=== PATIENT | female | born 1990 | race Caucasian/White ===

== ENCOUNTER 2020-05-29 00:06 | Inpatient (IN) | payer MEDICAID, OTHER, SELFPAY ==
[2020-05-29] MEDS ORDERED: Ondansetron 4 MG/2 ML SDV IVPUSH PRN ×2 (13:56→15:12)
[2020-05-29] MEDS ORDERED: Nalbuphine 10 MG/ML Syringe IVPUSH PRN (13:56)
[2020-05-29] MEDS ORDERED: Sodium Chloride 0.9% 10 ML Syringe FLUSH PRN (13:56)
[2020-05-29] MEDS ORDERED: Ampicillin 2 GM in Sodium Chloride 0.9% 100 ML IV ONE (14:00)
[2020-05-29] MEDS ORDERED: Oxytocin/Lactated Ringers 10 UNIT/1,000 ML BAG IV SCH ×2 (14:00)
[2020-05-29] MEDS: Lactated Ringers 1,000 ML IV SCH ×4 (14:51→21:28)
[2020-05-29] MEDS ORDERED: ePHEDrine 50 MG/ML SDV IVPUSH PRN (15:12)
[2020-05-29] MEDS ORDERED: Bupivacaine/fentaNYL/NS 100 ML Bag EPIDUR SCH (15:15)
--- NOTE | 2020-05-29 15:15 | PCM.PREANE ---
Preanesthetic Assessment - Procedure Proposed Procedure: Epidural - Anesthesia/Transfusion/Family Hx Anesthesia History: No Prior Anesthesia Family History of Anesthesia Reaction: No Transfusion History: No Prior Transfusion(s) Intubation History: Unknown - Review of Systems General: No Symptoms Pulmonary: No Symptoms Cardiovascular: No Symptoms Gastrointestinal: No Symptoms (GERD) Neurological: No Symptoms, Headache Other: Reports: None, Easy Bruising - Physical Assessment NPO Status Date: 05/29/20 NPO Status Time: 16:15 Vital Signs: HR:109 Sat:99% Temp:98.6 B/P:136/80 Resp:20 Height: 1.63 m Weight: 88.178 kg ASA Class: 2 Mental Status: Alert & Oriented x3 Airway Class: Mallampati = 2 Dentition: Reports: Normal Dentition (tongue piercinig/ asked to remove all piercings.), Caries Thyro-Mental Finger Breadths: 3 Mouth Opening Finger Breadths: 3 ROM/Head Extension: Full Lungs: Clear to Auscultation, Normal Respiratory Effort Cardiovascular: Regular Rate, Regular Rhythm, No Murmurs - Lab Values: Laboratory Last Values WBC 10.68 K/mm3 (3.98-10.04) H 05/29/20 14:10 RBC 4.50 M/mm3 (3.98-5.22) 05/29/20 14:10 Hgb 12.5 gm/dl (11.2-15.7) 05/29/20 14:10 Hct 38.0 % (34.1-44.9) 05/29/20 14:10 MCV 84.4 fl (79.4-94.8) 05/29/20 14:10 MCH 27.8 pg (25.6-32.2) 05/29/20 14:10 MCHC 32.9 g/dl (32.2-35.5) 05/29/20 14:10 RDW Std Deviation 41.1 fL (36.4-46.3) 05/29/20 14:10 Plt Count 270 K/mm3 (182-369) 05/29/20 14:10 MPV 12.5 fl (9.4-12.3) H 05/29/20 14:10 Neut % (Auto) 77.7 % (34.0-71.1) H 05/29/20 14:10 Lymph % (Auto) 13.7 % (19.3-51.7) L 05/29/20 14:10 [place] % (Auto) 7.2 % (4.7-12.5) 05/29/20 14:10 Eos % (Auto) 0.8 (0.7-5.8) 05/29/20 14:10 Baso % (Auto) 0.2 % (0.1-1.2) 05/29/20 14:10 Neut # (Auto) 8.30 K/mm3 (1.56-6.13) H 05/29/20 14:10 Lymph # (Auto) 1.46 K/mm3 (1.18-3.74) 05/29/20 14:10 [place] # (Auto) 0.77 K/mm3 (0.24-0.36) H 05/29/20 14:10 Eos # (Auto) 0.09 K/mm3 (0.04-0.36) 05/29/20 14:10 Baso # (Auto) 0.02 K/mm3 (0.01-0.08) 05/29/20 14:10 Above labs reviewed and noted and within acceptable ranges to proceed with epidural if desired. 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: - CURRENT (IN HOUSE) MEDS Current Meds: Current Medications Ampicillin Sodium 1 gm/ Sodium (Chloride) 100 mls @ 200 mls/hr IV Q4H LUCAS Oxytocin/Lactated Ringer's (Pitocin In Lr 10 Units/1,000 Ml) 10 unit in 1,000 mls @ 12 mls/hr IV TITRATE LUCAS; Protocol Last Admin: 05/29/20 14:54 Dose: 2 munits/min, 12 mls/hr Documented by: Oxytocin/Lactated Ringer's (Pitocin In Lr 10 Units/1,000 Ml) 10 unit in 1,000 mls @ 500 mls/hr IV .CONTINUOUS LUCAS Lactated Ringer's (Ringers, Lactated) 1,000 mls @ 100 mls/hr IV ASDIRECTED LUCAS Last Admin: 05/29/20 14:51 Dose: 100 mls/hr Documented by: Nalbuphine HCl (Nubain) 10 mg IVPUSH Q2H PRN PRN Reason: Pain Ondansetron HCl (Zofran) 4 mg IVPUSH Q4H PRN PRN Reason: Nausea/Vomiting Sodium Chloride (Saline Flush) 10 ml FLUSH ASDIRECTED PRN PRN Reason: Keep Vein Open Discontinued Medications Ampicillin Sodium 2 gm/ Sodium (Chloride) 100 mls @ 200 mls/hr IV ONETIME ONE Stop: 05/29/20 14:29 Last Admin: 05/29/20 14:56 Dose: 200 mls/hr Documented by:
[2020-05-29] MEDS: Ampicillin 1 GM in Sodium Chloride 0.9% 100 ML IV SCH ×2 (18:46→22:53)
[2020-05-29] MEDS ORDERED: fentaNYL 100 MCG/2 ML SDV ONE (20:19)
[2020-05-29] MEDS ORDERED: fentaNYL 100 MCG/2 ML SDV EPIDUR PRN (20:19)
[2020-05-30] MEDS ORDERED: Bupivacaine 0.25% 10 ML SDV ONE
--- NOTE | 2020-05-30 00:22 | PCM.LDHP ---
L&D History of Present Illness - General Date of Service: 05/29/20 Admit Problem/Dx: Patient Status Order with Admit Dx/Problem 05/29/20 13:56 Patient Status [ADT] Routine Admission Diagnosis/Problem Admission Diagnosis/Problem - History of Present Illness Introduction:: 30 year old at 39w1 here for induction after two elevated blood pressures in clinic. PNC with myself without complications. No significant symptoms today. Mild headache a few days ago. Good movement. 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: Social & Family History - Family History Family Medical History: Noncontributory - Tobacco Use Smoking Status *Q: Never Smoker Second Hand Smoke Exposure: No - Recreational Drug Use Recreational Drug Use: No H&P Review of Systems - Review of Systems: Review Of Systems: See Below General: Reports: No Symptoms HEENT: Reports: No Symptoms Pulmonary: Reports: No Symptoms Cardiovascular: Reports: No Symptoms Gastrointestinal: Reports: No Symptoms Genitourinary: Reports: No Symptoms Musculoskeletal: Reports: No Symptoms Skin: Reports: No Symptoms Psychiatric: Reports: No Symptoms Neurological: Reports: No Symptoms Hematologic/Lymphatic: Reports: No Symptoms Immunologic: Reports: No Symptoms L&D Exam - Exam Exam: See Below - Vital Signs Vital Signs: Last Vital Signs Temp 36.8 C 05/29/20 13:56 Pulse 109 H 05/29/20 13:56 Resp 14 05/29/20 13:56 BP 136/80 05/29/20 13:56 Pulse Ox 96 05/29/20 13:56 Weight: 88.178 kg - OB Specific Contraction Intensity: Moderate to Strong Movement: Active Heart Tones: Present Heart Rate (FHR) Variability: Moderate (6-25 bmp) - Kelley Score Kelley Score Cervix Position: Anterior Kelley Score Effacement: >80% Kelley Score Dilation: 3-4 cm Kelley Score 's Station: -3 - Exam General: Alert, Oriented HEENT: PERRLA, Conjunctiva Clear, EACs Clear, EOMI, Hearing Intact, Mucosa Moist & [place], Nares Patent, Normal Nasal Septum, Posterior Pharynx Clear, TMs Clear Neck: Supple, Trachea Midline Lungs: Clear to Auscultation, Normal Respiratory Effort Cardiovascular: Regular Rate, Regular Rhythm GI/Abdominal Exam: Normal Bowel Sounds, Soft, Non-Tender Rectal Exam: Normal Exam Genitourinary: Normal external exam Back Exam: Normal Inspection Extremities: Normal Inspection, Normal Range of Motion, Non-Tender, No Pedal Edema, Normal Capillary Refill Skin: Warm, Dry, Intact Neurological: Cranial Nerves Intact Psychiatric: Alert, Normal Affect, Normal Mood - Patient Data Lab Results Last 24 hrs: Laboratory Results - last 24 hr 05/29/20 05/29/20 05/29/20 Range/Units 14:10 14:10 14:10 WBC 10.68 H (3.98-10.04) K/mm3 RBC 4.50 (3.98-5.22) M/mm3 Hgb 12.5 (11.2-15.7) gm/dl Hct 38.0 (34.1-44.9) % MCV 84.4 (79.4-94.8) fl MCH 27.8 (25.6-32.2) pg MCHC 32.9 (32.2-35.5) g/dl RDW Std Deviation 41.1 (36.4-46.3) fL Plt Count 270 (182-369) K/mm3 MPV 12.5 H (9.4-12.3) fl Neut % (Auto) 77.7 H (34.0-71.1) % Lymph % (Auto) 13.7 L (19.3-51.7) % [place] % (Auto) 7.2 (4.7-12.5) % Eos % (Auto) 0.8 (0.7-5.8) Baso % (Auto) 0.2 (0.1-1.2) % Neut # (Auto) 8.30 H (1.56-6.13) K/mm3 Lymph # (Auto) 1.46 (1.18-3.74) K/mm3 [place] # (Auto) 0.77 H (0.24-0.36) K/mm3 Eos # (Auto) 0.09 (0.04-0.36) K/mm3 Baso # (Auto) 0.02 (0.01-0.08) K/mm3 RPR Non-reactive (NONREACTIVE) HIV-1 Ab Rapid Screen (NEGATIVE) SARS-CoV-2 RNA (RAOUL) (NEGATIVE) Blood Type AB POSITIVE Gel Antibody Screen Negative 05/29/20 05/29/20 Range/Units 14:10 14:50 WBC (3.98-10.04) K/mm3 RBC (3.98-5.22) M/mm3 Hgb (11.2-15.7) gm/dl Hct (34.1-44.9) % MCV (79.4-94.8) fl MCH (25.6-32.2) pg MCHC (32.2-35.5) g/dl RDW Std Deviation (36.4-46.3) fL Plt Count (182-369) K/mm3 MPV (9.4-12.3) fl Neut % (Auto) (34.0-71.1) % Lymph % (Auto) (19.3-51.7) % [place] % (Auto) (4.7-12.5) % Eos % (Auto) (0.7-5.8) Baso % (Auto) (0.1-1.2) % Neut # (Auto) (1.56-6.13) K/mm3 Lymph # (Auto) (1.18-3.74) K/mm3 [place] # (Auto) (0.24-0.36) K/mm3 Eos # (Auto) (0.04-0.36) K/mm3 Baso # (Auto) (0.01-0.08) K/mm3 RPR (NONREACTIVE) HIV-1 Ab Rapid Screen Negative (NEGATIVE) SARS-CoV-2 RNA (RAOUL) Negative (NEGATIVE) Blood Type Gel Antibody Screen Result Diagrams: 05/29/20 14:10 Problem List Initiated/Reviewed/Updated: Yes Orders Last 24hrs: Active Orders 24 hr Category Date Time Status Patient Status [ADT] Routine ADT 05/29/20 13:56 Active Activity as Tolerated [RC] PFP Care 05/29/20 13:56 Active Communication Order [RC] ASDIRECTED Care 05/29/20 13:56 Active Insert Urinary Catheter [OM.PC] Q24H Care 05/29/20 22:15 Ordered Notify Provider [RC] ASDIRECTED Care 05/29/20 15:12 Active Notify Provider [RC] PFP Care 05/29/20 13:56 Active Notify Provider [RC] PRN Care 05/29/20 13:56 Active Peripheral IV Care [RC] Q2HR Care 05/29/20 13:56 Active Urinary Catheter Assessment [RC] ASDIRECTED Care 05/29/20 22:08 Active Regular Diet [DIET] Diet 05/29/20 Dinner Active BLOOD BANK HOLD SPECIMEN [BBK] Stat Lab 05/29/20 13:56 Ordered HEPATITIS B SURFACE AG [CHEM] Routine Lab 05/29/20 14:10 Received RUBELLA ANTIBODY IGG [CHEM] Stat Lab 05/29/20 14:10 Received Ampicillin 1 gm Med 05/29/20 19:00 Active Sodium Chloride 0.9% [Normal Saline] 100 ml IV Q4H Bupivacaine/fentaNYL/NS [fentaNYL/Bupivacaine/NS 2 MCG- Med 05/29/20 15:15 Active 0.125% 100 ML] 100 ml EPIDUR ASDIRECTED Lactated Ringers [Ringers, Lactated] 1,000 ml Med 05/29/20 14:00 Active IV ASDIRECTED Nalbuphine [Nubain] Med 05/29/20 13:56 Active 10 mg IVPUSH Q2H PRN Ondansetron [Zofran] Med 05/29/20 15:12 Active 4 mg IVPUSH ONETIME PRN Ondansetron [Zofran] Med 05/29/20 13:56 Active 4 mg IVPUSH Q4H PRN Oxytocin/Lactated Ringers [Pitocin in LR 10 Units/1,000 Med 05/29/20 14:00 Active ML] 10 unit in 1,000 ml IV .CONTINUOUS Oxytocin/Lactated Ringers [Pitocin in LR 10 Units/1,000 Med 05/29/20 14:00 Active ML] 10 unit in 1,000 ml IV TITRATE Sodium Chloride 0.9% [Saline Flush] Med 05/29/20 13:56 Active 10 ml FLUSH ASDIRECTED PRN ePHEDrine [ePHEDrine sulfate] Med 05/29/20 15:12 Active 5 mg IVPUSH ASDIRECTED PRN fentaNYL [Sublimaze] Med 05/29/20 20:19 Active 100 mcg EPIDUR Q3H PRN Electronic Heart Tones Ext w TOCO [WOMSER] Oth 10/06/20 13:56 Ordered Routine Electronic Heart Tones Internal [WOMSER] Per Unit Oth 05/29/20 13:56 Ordered Routine Peripheral IV Insertion Adult [OM.PC] Routine Oth 05/29/20 13:56 Ordered Resuscitation Status Routine Resus Stat 05/29/20 13:56 Ordered Medication Orders Ephedrine Sulfate (Ephedrine Sulfate) 5 mg IVPUSH ASDIRECTED PRN PRN Reason: Hypotension Fentanyl (Sublimaze) 100 mcg EPIDUR Q3H PRN PRN Reason: Pain Last Admin: 05/29/20 20:28 Dose: 100 mcg Documented by: TREY Fentanyl/Bupivacaine HCl (Fentanyl/Bupivacaine/Ns 2 Mcg-0.125% 100 Ml) 100 ml EPIDUR ASDIRECTED LUCAS Last Admin: 05/29/20 20:22 Dose: 100 ml Documented by: TREY Ampicillin Sodium 1 gm/ Sodium (Chloride) 100 mls @ 200 mls/hr IV Q4H LUCAS Last Admin: 05/29/20 22:53 Dose: 200 mls/hr Documented by: Infusion: 05/29/20 19:16 Dose: 200 mls/hr Documented by: Admin: 05/29/20 18:46 Dose: 200 mls/hr Documented by: APRYL Oxytocin/Lactated Ringer's (Pitocin In Lr 10 Units/1,000 Ml) 10 unit in 1,000 mls @ 12 mls/hr IV TITRATE LUCAS; Protocol Last Titration: 05/29/20 23:56 Dose: 12 munits/min, 72 mls/hr Documented by: Titration: 05/29/20 18:36 Dose: 10 munits/min, 60 mls/hr Documented by: Titration: 05/29/20 16:58 Dose: 8 munits/min, 48 mls/hr Documented by: Titration: 05/29/20 16:18 Dose: 6 munits/min, 36 mls/hr Documented by: Titration: 05/29/20 15:46 Dose: 4 munits/min, 24 mls/hr Documented by: Admin: 05/29/20 14:54 Dose: 2 munits/min, 12 mls/hr Documented by: APRYL Oxytocin/Lactated Ringer's (Pitocin In Lr 10 Units/1,000 Ml) 10 unit in 1,000 mls @ 500 mls/hr IV .CONTINUOUS [facility] Lactated Ringer's (Ringers, Lactated) 1,000 mls @ 100 mls/hr IV ASDIRECTED [facility] Last Admin: 05/29/20 21:28 Dose: 100 mls/hr Documented by: Infusion: 05/29/20 21:28 Dose: 999 mls/hr Documented by: Admin: 05/29/20 20:27 Dose: 999 mls/hr Documented by: Infusion: 05/29/20 20:27 Dose: 100 mls/hr Documented by: Admin: 05/29/20 18:34 Dose: 100 mls/hr Documented by: Infusion: 05/29/20 18:34 Dose: 100 mls/hr Documented by: Admin: 05/29/20 14:51 Dose: 100 mls/hr Documented by: APRYL Nalbuphine HCl (Nubain) 10 mg IVPUSH Q2H PRN PRN Reason: Pain Ondansetron HCl (Zofran) 4 mg IVPUSH Q4H PRN PRN Reason: Nausea/Vomiting Ondansetron HCl (Zofran) 4 mg IVPUSH ONETIME PRN PRN Reason: Nausea/Vomiting Sodium Chloride (Saline Flush) 10 ml FLUSH ASDIRECTED PRN PRN Reason: Keep Vein Open Assessment/Plan Comment:: 30 year old here for induction. AROM clear fluid. Ampicillin. Pitocin. Anticipate .
--- NOTE | 2020-05-30 00:25 | PCM.SN.2 ---
- Free Text/Narrative Note: Stage I - Patient presented for induction of labor. Ampicillin and pitocin. AROM clear fluid. Progressed to complete with reassuring FHT. Epidural for anesthesia. Stage II - of viable male, weight 7#5oz, 8/9 APGARS at 0006. Head delivered in controlled manner over intact perineum. Nuchal arm. Body and shoulders followed without difficulty. Pitocin initiated. To maternal abdomen. Positive cry. See nursing record for immediate care. Cord clamped and cut. Cord blood collected. Stage III - of intact placenta. Discarded. 3vc. Small subcentimeter periurethral laceration not requiring repair. EBL 200.
[2020-05-30] MEDS ORDERED: Witch Hazel Medicated Pads 40/Jar TOP PRN (01:52)
[2020-05-30] MEDS ORDERED: Docusate Sodium 100 MG Cap PO PRN (01:52)
[2020-05-30] MEDS ORDERED: Ibuprofen 600 MG Tab PO PRN (01:52)
[2020-05-30] MEDS ORDERED: Benzocaine/Menthol 20%-0.5% Spray 56 GM Canister TOP PRN (01:52)
--- NOTE | 2020-05-30 08:01 | PCM48HPAN ---
Post Anesthesia Note - EVALUATION WITHIN 48HRS OF ANESTHETIC Vital Signs in Normal Range: Yes Patient Participated in Evaluation: Yes Respiratory Function Stable: Yes Airway Patent: Yes Cardiovascular Function Stable: Yes Hydration Status Stable: Yes Pain Control Satisfactory: Yes Nausea and Vomiting Control Satisfactory: Yes Mental Status Recovered: Yes Vital Signs: Last Vital Signs Temp 99.1 F 05/30/20 03:00 Pulse 93 05/30/20 03:00 Resp 14 05/30/20 03:00 BP 116/88 05/30/20 03:00 Pulse Ox 94 L 05/30/20 03:00
--- NOTE | 2020-05-31 10:00 | PCM.DCSUM1 ---
Discharge Summary - Hospital Course Brief History: Admitted for IOL. Uncomplicated and course. BPs no more than mild range throughout stay. Diagnosis: Stroke: No - Discharge Data Discharge Date: 05/31/20 Discharge Disposition: Home, Self-Care 01 Condition: Good - Referral to Home Health Primary Care Physician: PCP None - Patient Instructions Diet: Usual Diet as Tolerated Activity: No Strenuous Activities Driving: May Drive Today Showering/Bathing: May Shower Notify Provider of: Fever, Increased Pain, Swelling and Redness, Drainage, Nausea and/or Vomiting Other/Special Instructions: call with headache, generally any change in symptoms or new abdominal pain - Discharge Plan *PRESCRIPTION DRUG MONITORING PROGRAM REVIEWED*: No *COPY OF PRESCRIPTION DRUG MONITORING REPORT IN PATIENT CARLYN: No Patient Handouts: Breast Pumping Tips, and Self-Care, Care After Vaginal Delivery Referrals: Gretel Power MD [Physician] - - Discharge Summary/Plan Comment DC Time >30 min.: No - Patient Data Vitals - Most Recent: Last Vital Signs Temp 36.8 C 05/31/20 07:49 Pulse 80 05/31/20 07:49 Resp 14 05/31/20 07:49 BP 115/80 05/31/20 07:49 Pulse Ox 93 L 05/31/20 07:49 Weight - Most Recent: 88.178 kg Lab Results - Last 24 hrs: Laboratory Results - last 24 hr 05/29/20 Range/Units 14:10 Hep Bs Antigen Nonreactive (NONREACTIVE) Rubella IgG Antibody Reactive (pos) (REACTIVE) Med Orders - Current: Current Medications Benzocaine/Menthol (Dermoplast Pain Relief [place]) 0 gm TOP ASDIRECTED PRN PRN Reason: Perineal Comfort Measure Last Admin: 05/30/20 02:15 Dose: 1 can Documented by: Docusate Sodium (Colace) 100 mg PO BID PRN PRN Reason: Constipation Last Admin: 05/30/20 02:14 Dose: 100 mg Documented by: Ibuprofen (Motrin) 600 mg PO Q6H PRN PRN Reason: Mild pain or fever Last Admin: 05/30/20 02:14 Dose: 600 mg Documented by: Reji Deleon (Gissel) 1 pad TOP ASDIRECTED PRN PRN Reason: Pain Last Admin: 05/30/20 02:15 Dose: 1 container Documented by: Discontinued Medications Bupivacaine HCl (Sensorcaine-Mpf 0.25%) 10 ml .ROUTE .STK-MED ONE Stop: 05/30/20 00:01 Ephedrine Sulfate (Ephedrine Sulfate) 5 mg IVPUSH ASDIRECTED PRN PRN Reason: Hypotension Fentanyl (Sublimaze) 100 mcg EPIDUR Q3H PRN PRN Reason: Pain Last Admin: 05/29/20 20:28 Dose: 100 mcg Documented by: Fentanyl (Sublimaze) Confirm Administered Dose 100 mcg .ROUTE .STK-MED ONE Stop: 05/29/20 20:20 Last Admin: 05/29/20 22:06 Dose: Not Given Documented by: Fentanyl/Bupivacaine HCl (Fentanyl/Bupivacaine/Ns 2 Mcg-0.125% 100 Ml) 100 ml EPIDUR ASDIRECTED LUCAS Last Admin: 05/29/20 20:22 Dose: 100 ml Documented by: Ampicillin Sodium 2 gm/ Sodium (Chloride) 100 mls @ 200 mls/hr IV ONETIME ONE Stop: 05/29/20 14:29 Last Admin: 05/29/20 14:56 Dose: 200 mls/hr Documented by: Ampicillin Sodium 1 gm/ Sodium (Chloride) 100 mls @ 200 mls/hr IV Q4H LUCAS Last Admin: 05/29/20 22:53 Dose: 200 mls/hr Documented by: Oxytocin/Lactated Ringer's (Pitocin In Lr 10 Units/1,000 Ml) 10 unit in 1,000 mls @ 12 mls/hr IV TITRATE LUCAS; Protocol Last Titration: 05/30/20 00:07 Dose: 166.5 munits/min, 999 mls/hr Documented by: Oxytocin/Lactated Ringer's (Pitocin In Lr 10 Units/1,000 Ml) 10 unit in 1,000 mls @ 500 mls/hr IV .CONTINUOUS LUCAS Last Admin: 05/30/20 00:40 Dose: 500 mls/hr Documented by: Lactated Ringer's (Ringers, Lactated) 1,000 mls @ 100 mls/hr IV ASDIRECTED LUCAS Last Admin: 05/29/20 21:28 Dose: 100 mls/hr Documented by: Miscellaneous Medication (Phenylephrine 1 Mg/10 Ml-Ns) 0 mg IVPUSH ONETIME ONE Stop: 05/29/20 15:13 Last Admin: 05/30/20 04:40 Dose: Not Given Documented by: Nalbuphine HCl (Nubain) 10 mg IVPUSH Q2H PRN PRN Reason: Pain Ondansetron HCl (Zofran) 4 mg IVPUSH Q4H PRN PRN Reason: Nausea/Vomiting Ondansetron HCl (Zofran) 4 mg IVPUSH ONETIME PRN PRN Reason: Nausea/Vomiting Sodium Chloride (Saline Flush) 10 ml FLUSH ASDIRECTED PRN PRN Reason: Keep Vein Open
== END 2020-05-31 11:00 | disposition home or self-care (01) | DRG 807 ==
LOC: JD.OB 00:06 → OBSVTOIN 05-30 00:06 → JD.OB 05-31 06:56
PROVIDERS: ADMIT Obstetrics & Gynecology; ATTEND Obstetrics & Gynecology
PROC: 10E0XZZ Delivery of Products of Conception, External Approach (ICD-10-PCS; principal; 2020-05-30)
PROC: 10907ZC Drainage of Amniotic Fluid, Therapeutic from Products of Conception, Via Natural or Artificial Opening (ICD-10-PCS; 2020-05-30)
PROC: 3E033VJ Introduction of Other Hormone into Peripheral Vein, Percutaneous Approach (ICD-10-PCS; 2020-05-30)
PROC: 3E0R3BZ Introduction of Anesthetic Agent into Spinal Canal, Percutaneous Approach (ICD-10-PCS; 2020-05-30)
PROC: 00HU33Z Insertion of Infusion Device into Spinal Canal, Percutaneous Approach (ICD-10-PCS; 2020-05-30)
DX: O13.4 Gestational [pregnancy-induced] hypertension without significant proteinuria, complicating childbirth (principal); Z37.0 Single live birth; Z3A.39 39 weeks gestation of pregnancy; Z20.828 Contact with and (suspected) exposure to other viral communicable diseases
CPT/HCPCS: 01967; 36415; 51702; 59025; 59409; 85025; 86592; 86762; 86850; 86900; 86901; 87340; A9270-GY; G0433; J0290; J2590; J3010; J3490; J7050; J7120; U0002